=== PATIENT | female | born 1950 | race Caucasian/White ===

== ENCOUNTER 2021-08-08 23:03 | Emergency (ER) | payer MEDICARE | END 2021-08-09 03:01 | disposition home or self-care (01) | LOC: FER 23:03 | DX: R51.9 Headache, unspecified (principal); M54.2 Cervicalgia; M25.562 Pain in left knee; W01.0XXA Fall on same level from slipping, tripping and stumbling without subsequent striking against object, initial encounter; Y93.K1 Activity, walking an animal; Y92.009 Unspecified place in unspecified non-institutional (private) residence as the place of occurrence of the external cause ==

== ENCOUNTER 2021-08-12 17:09 | Emergency (ER) | payer MEDICARE ==
[~2021-08-12 17:09] MED LIST: CIPRO250 MG PO; DIFLUCAN150 M1 PO; FLEXERIL5 MG PO; NAPROXEN500 MG PO; NORCO 5-325 TA1 EACH PO; PREDNISONE 20MG20 MG PO; PYRIDIUM100 MG PO
[2021-08-12 18:34] LABS: BASOPHIL 0.7 % (0-2); EOSINOPHIL 1.2 % (0-7); HGB 15.5 g/dl (12.5-16.0); LYMPHOCYTE 25.3 % (15-48); MCH 31.6 pg (25.0-31.0); MCV 95.9 fL (78.0-100.0); MONOCYTE 7.4 % (0-12); MPV 9.3 fL (6.0-9.5); NEUTROPHIL 65.1 % (41-80); NRBC 0; PLT 245 K/uL (150-400); WBC 12.6 K/uL (4.0-10.5)
[2021-08-12 18:42] LABS: INR 0.98 (0.9-1.2); PROTHROMBIN TIME 12.4 SECONDS (11.8-13.4)
[2021-08-12 18:43] LABS: PTT 28.1 SECONDS (24.4-34.7)
[2021-08-12 18:53] LABS: ALBUMIN 3.8 g/dL (3.4-5.0); BILIRUBIN - TOTAL 0.6 mg/dL (0.2-1.0); CREATININE 0.58 mg/dL (0.51-0.95); POTASSIUM 3.7 mmol/L (3.5-5.1); TOTAL PROTEIN 7.8 g/dL (6.4-8.2)
[2021-08-12 20:48] LABS: BILIRUBIN NEGATIVE (NEGATIVE); BLOOD NEGATIVE Ery/uL (NEGATIVE); COLOR YELLOW (YELLOW); GLUCOSE (U) NORMAL (NORMAL); LEUKOCYTES 1+ Leu/uL (NEGATIVE); NITRITE NEGATIVE (NEGATIVE); PROTEIN NEGATIVE (NEGATIVE); UROBILINOGEN 0.2 mg/dL (0.2-1.0)
[2021-08-12 20:49] LABS: CLARITY SLIGHTLY HAZY (CLEAR)
[2021-08-12 20:57] LABS: TRANSITIONAL EPITHELIAL CELLS RARE
[2021-08-12] MEDS ORDERED: ONDANSETRON ODT4 MG SL (20:59)
[2021-08-12] MEDS ORDERED: ANTIVERT12.5 MG PO (20:59)
[2021-08-12 22:08] LABS: CORONAVIRUS 2019 SARS-COV-2 NEGATIVE (NEGATIVE); INFLUENZA A NAA NEGATIVE (NEGATIVE)
== END 2021-08-12 22:15 | disposition home or self-care (01) ==
LOC: FER 17:09
PROVIDERS: Emergency Medicine; Emergency Medicine Emergency Medical Services
DX: S06.0X0A Concussion without loss of consciousness, initial encounter (principal); Z88.0 Allergy status to penicillin; Z88.2 Allergy status to sulfonamides; Z88.5 Allergy status to narcotic agent; Z88.6 Allergy status to analgesic agent; Z20.822 Contact with and (suspected) exposure to COVID-19; W01.0XXA Fall on same level from slipping, tripping and stumbling without subsequent striking against object, initial encounter
CPT/HCPCS: 36415; 70450; 71045; 80053; 81001; 84484; 85025; 85610; 85730; 93005; J1100; J1885; J2405; J7040; U0002

== ENCOUNTER 2022-03-09 13:55 | Emergency (ER) | payer MEDICARE ==
[~2022-03-09 13:55] MED LIST changes: +ANTIVERT12.5 MG PO; +ONDANSETRON ODT4 MG SL
[2022-03-09] MEDS ORDERED: TRAMADOL HCL50 MG PO (15:27)
== END 2022-03-09 15:39 | disposition home or self-care (01) ==
LOC: FER 13:55
DX: M25.552 Pain in left hip (principal); Z88.0 Allergy status to penicillin; Z88.5 Allergy status to narcotic agent; Z91.041 Radiographic dye allergy status; W19.XXXA Unspecified fall, initial encounter; Y92.009 Unspecified place in unspecified non-institutional (private) residence as the place of occurrence of the external cause
CPT/HCPCS: 73502; 73700; J1040